=== PATIENT | female | born 1990 | race African-American/Black ===

== ENCOUNTER 2018-08-27 19:13 | Emergency (ER) | payer OTHER ==
[~2018-08-27] VITALS: Ht 175.3 cm; Wt 119.8 kg
[2018-08-27] MEDS ORDERED: VALIUM5 MG PO (19:37)
[2018-08-27] MEDS ORDERED: PERCOCET 7.5-31 EACH PO (19:37)
[2018-08-27 19:59] LABS: URINE BILIRUBIN NEGATIVE (Negative); URINE BLOOD NEGATIVE (Negative); URINE CLARITY CLEAR; URINE COLOR YELLOW; URINE GLUCOSE-RANDOM* NEGATIVE (Negative); URINE KETONES NEGATIVE (Negative); URINE LEUKOCYTES-REFLEX NEGATIVE (Negative); URINE NITRITE-REFLEX NEGATIVE (Negative); URINE PROTEIN (DIPSTICK) NEGATIVE (Negative); URINE SPECIFIC GRAVITY 1.025 (1.005-1.035); URINE UROBILINOGEN 0.2 E.U./dl (0.2-1.0)
[2018-08-27] MEDS ORDERED: MEDROLDOSEPACK PO (21:21)
[2018-08-27] MEDS ORDERED: MOBIC7.5 MG PO (21:21)
[2018-08-27 21:28] VITALS: BP 139/93
== END 2018-08-27 21:40 | disposition home or self-care (01) ==
LOC: ER 19:13
PROVIDERS: Nurse Practitioner Family
DX: S16.1XXA Strain of muscle, fascia and tendon at neck level, initial encounter (principal); S39.012A Strain of muscle, fascia and tendon of lower back, initial encounter; S09.8XXA Other specified injuries of head, initial encounter; M54.16 Radiculopathy, lumbar region; F17.210 Nicotine dependence, cigarettes, uncomplicated; V89.2XXA Person injured in unspecified motor-vehicle accident, traffic, initial encounter; Y92.89 Other specified places as the place of occurrence of the external cause; Y93.89 Activity, other specified; Y99.8 Other external cause status

== ENCOUNTER 2020-11-29 00:28 | Emergency (ER) | payer BC, OTHER ==
[~2020-11-29] VITALS: Ht 175.3 cm; Wt 107.5 kg
[~2020-11-29 00:28] MED LIST: MEDROLDOSEPACK PO; MOBIC7.5 MG PO; PERCOCET 7.5-31 EACH PO; VALIUM5 MG PO
[2020-11-29] MEDS ORDERED: FLAGYL500 M1 PO (04:01)
[2020-11-29] MEDS ORDERED: VIBRAMYCIN 100100 MG PO (04:04)
[2020-11-29 04:14] VITALS: BP 148/89
[2020-11-29 05:13] LABS: URINE BILIRUBIN NEGATIVE (Negative); URINE BLOOD NEGATIVE (Negative); URINE CLARITY CLEAR; URINE COLOR YELLOW; URINE GLUCOSE-RANDOM* NEGATIVE (Negative); URINE KETONES NEGATIVE (Negative); URINE LEUKOCYTES-REFLEX NEGATIVE (Negative); URINE NITRITE-REFLEX NEGATIVE (Negative); URINE PROTEIN (DIPSTICK) NEGATIVE (Negative); URINE SPECIFIC GRAVITY 1.025 (1.005-1.035); URINE UROBILINOGEN 0.2 E.U./dl (0.2-1.0)
== END 2020-11-29 04:15 | disposition home or self-care (01) ==
LOC: ER 00:28
PROVIDERS: Emergency Medicine
DX: A59.9 Trichomoniasis, unspecified (principal); F17.210 Nicotine dependence, cigarettes, uncomplicated; Z11.3 Encounter for screening for infections with a predominantly sexual mode of transmission; Z98.890 Other specified postprocedural states